=== PATIENT | female | born 1980 | race Caucasian/White ===

== ENCOUNTER 2024-03-31 00:05 | Emergency (ER) | payer OTHER, BC ==
[~2024-03-31] VITALS: Ht 170.2 cm; Wt 104.3 kg
[2024-03-31 00:15] VITALS: BP 151/84; PULSE 80; RESP 20; TEMP 97.3; O2SAT 100
[2024-03-31] MEDS: AMOXIL/CLAVULANATE 875/125 MG 1 TAB PO ONE (02:09)
[2024-03-31] MEDS ORDERED: AMOX1TAB8 PO (02:26)
[2024-03-31] MEDS ORDERED: ACET-6951 PO (02:26)
[2024-03-31] MEDS ORDERED: LIDO100S PO (02:26)
[2024-03-31] MEDS ORDERED: ACETAMINOPHEN EXTRA STRENGTH 500 MG TAB ONE (02:41)
[2024-03-31] MEDS: ACETAMINOPHEN EXTRA STRENGTH 500 MG TAB PO ONE (02:59)
== END 2024-03-31 02:55 | disposition home or self-care (01) ==
LOC: MED 00:05
DX: K08.89 Other specified disorders of teeth and supporting structures (principal); K03.81 Cracked tooth; E11.22 Type 2 diabetes mellitus with diabetic chronic kidney disease; I12.0 Hypertensive chronic kidney disease with stage 5 chronic kidney disease or end stage renal disease; N18.6 End stage renal disease; Z99.2 Dependence on renal dialysis; Z98.890 Other specified postprocedural states; Z88.1 Allergy status to other antibiotic agents; Z88.5 Allergy status to narcotic agent
CPT/HCPCS: 99283